=== PATIENT | male | born 1950 | race Caucasian/White ===

== ENCOUNTER → 2018-03-11 | Outpatient (CLI) | payer OTHER, MEDICARE ==
[~2018-03-11] MED LIST: IOPAMIDOL (ISOVUE-300) 100 ML BTL ONE
== END ==
LOC: FIMAGING 09:25
PROVIDERS: ATTEND Urology
DX: C61 Malignant neoplasm of prostate (principal)
CPT/HCPCS: 74177; Q9967

== ENCOUNTER 2018-10-03 13:10 | Emergency (ER) | payer OTHER, MEDICARE ==
[2018-10-03] MEDS ORDERED: IOPAMIDOL (ISOVUE 370) 100 ML BTL IV ONE (13:29)
--- NOTE | 2018-10-03 14:42 | EDPHY ---
H & P Stated Complaint: + DDIMER at PCP Time Seen by Provider: 10/03/18 13:18 HPI/ROS: CHIEF COMPLAINT: Shortness of breath HISTORY OF PRESENT ILLNESS: 67-year-old male presents with shortness of breath. Onset of shortness of breath several months ago. The shortness of breath occurs only with extreme exertion such as running. He is not short of breath at rest or during his usual things around the house. Has an occasional cough. No associated chest pain, fever, diaphoresis or other symptoms. REVIEW OF SYSTEMS: complete 10 point ROS reviewed and is negative except for the noted elements in the HPI Source: Patient - Medical/Surgical History Hx Asthma: No Hx Chronic Respiratory Disease: No Hx Diabetes: No Hx Cardiac Disease: No Hx Renal Disease: No Hx Cirrhosis: No Hx Alcoholism: No Hx HIV/AIDS: No Hx Splenectomy or Spleen Trauma: No Other PMH: Prostate CA - Family History Significant Family History: No pertinent family hx - Social History Smoking Status: Never smoked Alcohol Use: Sober Drug Use: None - Physical Exam Exam: General Appearance: Alert, pleasant Eyes: Pupils equal and round, no conjunctival pallor or injection ENT, Mouth: Mucous membranes moist Neck: Normal inspection Respiratory: Normal respiratory rate, Lungs are clear to auscultation, no wheezing Cardiovascular: Regular rate and rhythm Gastrointestinal: Abdomen is soft and nontender Neurological: A&O, nonfocal, normal gait Skin: Warm and dry, no rash Extremities: Nontender, no pedal edema Psychiatric: Mood and affect normal Constitutional: Initial Vital Signs Temperature (C) 36.8 C 10/03/18 13:15 Heart Rate 62 10/03/18 13:15 Respiratory Rate 18 10/03/18 13:15 Blood Pressure 110/65 10/03/18 13:15 O2 Sat (%) 93 10/03/18 13:15 O2 Delivery Mode Room Air Allergies/Adverse Reactions: No Known Allergies Allergy (Unverified 10/03/18 13:15) Home Medications: Medication Instructions Recorded NK [No Known Home Meds] 10/03/18 Medical Decision Making - Diagnostics EKG Interpretation: EKG interpreted by me reveals normal sinus rhythm, no ST or T segment changes. Interpretation: Normal EKG ED Course/Re-evaluation: This patient presents with subacute shortness of breath, without recent change. Stat EKG reveals no evidence of ischemia or dysrhythmia and troponin is normal. Old medical record reviewed, D-dimer was minimally elevated and is actually normal for age. He presents to the ER for CT pulmonary angiogram. At his and his physician's request, I will proceed with CT scan. Results are unremarkable, no evidence of pulmonary embolism. Discussion with the patient and his . Will follow up with Cardiology and with pulmonology. He already has an appointment with Cardiology and will keep this appointment. Warning signs discussed. Differential Diagnosis: Differential diagnosis includes though it is not limited to pneumonia, pneumothorax, pulmonary embolism, aortic dissection, pericarditis, acute coronary syndrome. - Data Points Point of Care Test Results: Chemistry 10/03/18 13:52 POC Troponin I 0.00 ng/mL ng/mL (0.00-0.08) Departure - Departure Disposition: Home, Routine, Self-Care Clinical Impression: Dyspnea Qualifiers: Dyspnea type: dyspnea on exertion Qualified Code(s): R06.09 - Other forms of dyspnea Condition: Good Instructions: Dyspnea (ED) Additional Instructions: Your CT scan shows pulmonary nodules. You will need a repeat CT scan in 3 months for recheck. Referrals: Aram Miller MD [Primary Care Provider] - As per Instructions Sp Jaimes MD [Medical Doctor] - As per Instructions (Call to make an appointment.)
[2018-10-03 14:56] VITALS: BP 114/75
--- NOTE | 2018-10-03 15:27 | CPEKG ---
Test Reason : OPEN Blood Pressure : / mmHG Vent. Rate : 059 BPM Atrial Rate : 060 BPM P-R Int : 184 ms QRS Dur : 095 ms QT Int : 436 ms P-R-T Axes : 051 -78 031 degrees QTc Int : 432 ms Sinus rhythm Inferior infarct, old Confirmed by Karyn Valerio ([id number]) on 10/03/2018 3:27:03 PM Referred By: KARYN VALERIO Confirmed By:Karyn Valerio
== END 2018-10-03 14:55 | disposition home or self-care (01) ==
DX: R06.09 Other forms of dyspnea (principal)
CPT/HCPCS: 71275; 93005; 99285; Q9967; 84484-ER

== ENCOUNTER → 2018-10-03 | Outpatient (CLI) | payer OTHER, MEDICARE | LOC: BMCIMAGING 08:48 | PROVIDERS: ATTEND Family Medicine | DX: R06.09 Other forms of dyspnea (principal) ==